=== PATIENT | male | born 1940 | race Caucasian/White ===

== ENCOUNTER → 2020-11-28 | Outpatient (CLI) | payer MEDICARE, BC ==
[~2020-11-28] MED LIST: BENICAR PO; BUFFERED ASPIRIN PO; CALTRATE-600 W600 MG PO; DIFLUCAN PO; HCTZ PO; MVI PO; PREDNISONE10 MG PO; TETRACYCLINE 250MG PO
== END ==
LOC: ZCOL.LAB 16:30
DX: L10.0 Pemphigus vulgaris (principal)

== ENCOUNTER → 2021-09-09 | Outpatient (CLI) | payer MEDICARE, BC | LOC: ZCOL.LAB 17:00 | DX: L89.899 Pressure ulcer of other site, unspecified stage (principal) ==

== ENCOUNTER → 2021-10-28 | Outpatient (CLI) | payer MEDICARE, BC | LOC: ZCOL.LAB 17:22 | DX: I87.2 Venous insufficiency (chronic) (peripheral) (principal); L97.919 Non-pressure chronic ulcer of unspecified part of right lower leg with unspecified severity ==